=== PATIENT | male | born 1985 | race Hispanic/Latino ===

== ENCOUNTER 2017-05-05 00:37 | Emergency (ER) | payer BC ==
[2017-05-05 00:52] VITALS: BP 153/85; PULSE 72; RESP 16; TEMP 98; O2SAT 98
[2017-05-05] MEDS ORDERED: cefTRIAXone (Rocephin) 250 mg Inj IM ONE (02:15)
--- NOTE | 2017-05-05 02:23 | ED PDOC ---
HPI: Male Pain Chief Complaint (Provider): STD concerns. Additional Complaint(s): 31yo M in ED asymptomatic but concerned about sti. Pt states he was in [place] 1week ago had unprotected intercourse twice and received antiviral prophylaxis for HIV. Pt received azithromycin while in [place]. denies: penile drainage, ulceration swelling/pain to scrotum, anal drainage/ itching. <Marian Cleveland - Last Filed: 05/08/17 17:38> <Narendra Parmar - Last Filed: 05/09/17 19:34> Time Seen by Provider: 05/05/17 00:48 Chief Complaint (Nursing): Male Genitourinary Past Medical History Reviewed: Historical Data, Nursing Documentation, Vital Signs Vital Signs: Last Vital Signs Temp 98.0 F 05/05/17 00:49 Pulse 72 05/05/17 00:49 Resp 16 05/05/17 00:49 BP 153/85 H 05/05/17 00:49 Pulse Ox 98 05/05/17 00:49 - Medical History PMH: No Chronic Diseases - Family History Family History: States: No Known Family Hx <Marian Cleveland - Last Filed: 05/08/17 17:38> Vital Signs: Last Vital Signs Temp 98.0 F 05/05/17 00:49 Pulse 72 05/05/17 00:49 Resp 16 05/05/17 00:49 BP 153/85 H 05/05/17 00:49 Pulse Ox 98 05/08/17 17:38 <Narendra Parmar - Last Filed: 05/09/17 19:34> - Home Medications Home Medications: Ambulatory Orders Medication Instructions Recorded Dolutegravir Sodium [Tivicay] 50 mg PO DAILY #30 tab 05/05/17 Emtricitabine/Tenofovir (Tdf) 1 each PO DAILY #30 tablet 05/05/17 [Truvada 167 mg-250 mg Tablet] - Allergies Allergies/Adverse Reactions: Allergies Allergy/AdvReac Type Severity Reaction Status Date / Time No Known Allergies Allergy Verified 05/05/17 00:52 Review of Systems ROS Statement: Except As Marked, All Systems Reviewed And Found Negative Constitutional: Negative for: Fever, Chills Gastrointestinal: Negative for: Nausea, Vomiting, Abdominal Pain <Marian Cleveland - Last Filed: 05/08/17 17:38> Physical Exam - Reviewed Nursing Documentation Reviewed: Yes Vital Signs Reviewed: Yes - Physical Exam Appears: Positive for: Well, Non-toxic, No Acute Distress Skin: Positive for: Normal Color, Warm, DRY Cardiovascular/Chest: Positive for: Regular Rate, Rhythm Respiratory: Positive for: CNT, Normal Breath Sounds Neurologic/Psych: Positive for: Alert, Oriented <Marian Cleveland - Last Filed: 05/08/17 17:38> - ECG O2 Sat by Pulse Oximetry: 98 - Progress ED Course And Treament: Orders Category Date Time Status CHLAMYDIA/GC RNA,TMA Stat Lab 05/05/17 01:50 Ordered HSV 2 IGG, AB HERPESELECT Stat Lab 05/05/17 02:00 Received cefTRIAXone [Rocephin] Med 05/05/17 02:24 Discontinued 250 mg .ROUTE .STK-MED ONE cefTRIAXone [Rocephin] Med 05/05/17 02:15 Once 250 mg IM ONCE ONE cefTRIAXone [Rocephin] 1 gm Med 05/05/17 02:07 Discontinued Sodium Chloride 0.9% 100 ml IVPB STAT RAPID HIV SCREEN Stat Serology 05/05/17 02:00 Received RAPID PLASMA REAGIN Stat Serology 05/05/17 02:00 Received URINALYSIS Stat URINALYSIS 05/05/17 02:00 Received <Marian Cleveland - Last Filed: 05/08/17 17:38> Medical Decision Making Medical Decision Making: pt given Rocephin IM in ED and pt is requesting [place]ian version of HIV antiviral medication prophylaxis. pt advised to abstain from sexual intercourse until request are in. pt understands and agrees <Marian Cleveland - Last Filed: 05/08/17 17:38> Disposition - Patient ED Disposition Is Patient to be Admitted: No Counseled Patient/Family Regarding: Studies Performed, Diagnosis, Need For Followup - Disposition Disposition: Routine/Home Disposition Time: 02:27 <Marian Cleveland - Last Filed: 05/08/17 17:38> <Narendra Parmar - Last Filed: 05/09/17 19:34> - Clinical Impression Clinical Impression: Concern about STD in male without diagnosis - Disposition Condition: STABLE Prescriptions: Dolutegravir Sodium [Tivicay] 50 mg PO DAILY #30 tab Emtricitabine/Tenofovir (Tdf) [Truvada 167 mg-250 mg Tablet] 1 each PO DAILY # 30 tablet Instructions: Cervicitis (ED), Chlamydia (ED), Sexually Transmitted Diseases ( ED), Condom Use (ED), Safe Sex (ED) Forms: [employer] ([employer])
[2017-05-05] MEDS ORDERED: cefTRIAXone (Rocephin) 250 mg Inj ONE (02:24)
[2017-05-05 03:13] LABS: URINE BILIRUBIN NEGATIVE (NEGATIVE); URINE BLOOD NEGATIVE (NEGATIVE); URINE CLARITY CLEAR (Clear); URINE COLOR YELLOW (YELLOW); URINE GLUCOSE (UA) NEG (Normal); URINE LEUKOCYTE ESTERASE NEG Leu/uL (Negative); URINE NITRATE NEGATIVE (NEGATIVE); URINE PROTEIN NEGATIVE (NEGATIVE); URINE UROBILINOGEN 0.2-1.0 mg/dL (0.2-1.0)
== END 2017-05-05 03:16 | disposition home or self-care (01) ==
LOC: H.ER 00:37
DX: Z11.3 Encounter for screening for infections with a predominantly sexual mode of transmission (principal)
CPT/HCPCS: 81003; 86592; 86696; 87390; 87491; 87591; 96372; 99282; J0696